=== PATIENT | male | born 1975 | race Caucasian/White ===

== ENCOUNTER → 2019-01-04 | Outpatient (CLI) | payer OTHER ==
[~2019-01-04] MED LIST: AUGMENTIN 875875 MG PO; DARVOCET N 1001 TAB PO; DAYPRO600 M1 PO; LOMOTIL 0.025 M1 TAB PO; VITAMIN E100 I1 PO; Zofran4 MG PO
== END ==
LOC: RAD 09:56
DX: R06.02 Shortness of breath (principal)

== ENCOUNTER 2021-10-06 11:19 | Inpatient (IN) | payer OTHER ==
[~2021-10-06] VITALS: Ht 193 cm; Wt 81.7 kg
[2021-10-06 12:13] VITALS: BP 130/83
[2021-10-06 12:32] LABS: BASO # 0.1 10*3/uL (0.0-0.1); EOS # 0.2 10*3/uL (0.0-0.4); EOS % 2.2 % (1.0-4.0); HEMATOCRIT 42.6 % (42.0-52.0); LYMPH # 2.1 10*3/uL (1.3-4.4); LYMPH % 29.3 % (27.0-41.0); MEAN CELL VOLUME 96.2 fl (80.0-94.0); MEAN CORPUSCULAR HGB 32.7 pg (27.0-31.0); MEAN PLATELET VOLUME 9.8 fl (9.6-12.3); MONO # 0.5 10*3/uL (0.1-1.0); NEUT # 4.4 10*3/uL (2.3-7.9); NEUT % 60.2 % (47.0-73.0); PLATELET COUNT AUTOMATED 246 10*3/uL (130-400); RED BLOOD COUNT 4.43 10*6/uL (4.50-5.90); RED CELL DISTRI WIDTH 12.8 % (0-14.5); WHITE BLOOD COUNT 7.3 10*3/uL (4.8-10.8)
[2021-10-06 12:55] LABS: ALKALINE PHOSPHATASE 59 U/L (45-117); BUN 10 mg/dl (7-24); CHLORIDE 107 mmol/L (98-107); CREATININE 0.88 mg/dL (0.70-1.30); POTASSIUM 3.6 mmol/L (3.5-5.1); SGOT/AST 14 IU/L (3-35); SGPT/ALT 26 U/L (12-78); SODIUM 138 mmol/L (136-145); TOTAL PROTEIN 7.4 gm/dL (6.4-8.2)
[2021-10-06 13:08] LABS: ETHYL ALCOHOL < 3.0 mg/dl (<3)
[2021-10-06 13:17] LABS: BILIRUBIN Negative (Negative); BLOOD Negative (Negative); CLARITY Clear (Clear); COLOR Yellow (Yellow); GLUCOSE Negative (Negative); KETONE 2+ (Negative); LEUKO ESTERASE Negative (Negative); NITRITE Negative (Negative); PH 6.5 (4.5-8.0)
[2021-10-06 13:26] LABS: URINE AMPHETAMINES < 1000 (1000ng/ml); URINE BARBITURATES < 200 (200ng/ml); URINE BENZODIAZEPINES < 200 (200ng/ml); URINE CANNABINOIDS (THC) < 50 (50ng/ml); URINE COCAINE < 300 (300ng/ml); URINE METHADONE < 300 (300ng/ml); URINE OPIATES < 300 (300ng/ml)
[2021-10-06 13:27] LABS: URINE PHENCYCLIDINE < 25 (25ng/ml)
[2021-10-06 13:35] LABS: EPITHELIAL CELLS 0-2; RBC 0-2 rbc/hpf (0-2); WBC 0-2 wbc/hpf (0-5)
[2021-10-06 15:27] VITALS: BP 115/62
[2021-10-06 15:51] VITALS: BP 122/64
[2021-10-06 20:00] VITALS: BP 109/72
[2021-10-07] VITALS: BP 110/71
[2021-10-07 04:00] VITALS: BP 110/68
[2021-10-07 08:00] VITALS: BP 124/81
[2021-10-07 12:00] VITALS: BP 119/71
[2021-10-07 16:00] VITALS: BP 113/71
[2021-10-07 20:00] VITALS: BP 103/65
[2021-10-08] VITALS: BP 108/66
[2021-10-08 08:00] VITALS: BP 117/79
[2021-10-08 12:00] VITALS: BP 113/70
[2021-10-08 16:00] VITALS: BP 117/76
[2021-10-08 20:00] VITALS: BP 101/67
[2021-10-09] VITALS: BP 108/61
[2021-10-09 08:00] VITALS: BP 116/65
== END 2021-10-09 10:20 | disposition home or self-care (01) | DRG 897 ==
LOC: 5E 11:19
PROVIDERS: Registered Nurse; ADMIT Internal Medicine; ATTEND Internal Medicine
DX: F10.239 Alcohol dependence with withdrawal, unspecified (principal); D75.89 Other specified diseases of blood and blood-forming organs; F41.9 Anxiety disorder, unspecified; F17.210 Nicotine dependence, cigarettes, uncomplicated; Z80.3 Family history of malignant neoplasm of breast

== ENCOUNTER 2021-10-29 06:53 | Emergency (ER) | payer OTHER ==
[~2021-10-29] VITALS: Wt 82.1 kg
[2021-10-29] MEDS ORDERED: FLONASE ALLERG9.9 ML NAS (07:19)
[2021-10-29] MEDS ORDERED: MUCINEX DM 30/61 TAB PO (07:25)
== END 2021-10-29 07:21 | disposition home or self-care (01) ==
LOC: ED 06:53
DX: B34.9 Viral infection, unspecified (principal); Z20.822 Contact with and (suspected) exposure to COVID-19; F17.210 Nicotine dependence, cigarettes, uncomplicated

== ENCOUNTER 2022-05-03 03:32 | Emergency (ER) | payer OTHER ==
[~2022-05-03 03:32] MED LIST changes: +FLONASE ALLERG9.9 ML NAS; +MUCINEX DM 30/61 TAB PO
[2022-05-03 04:18] LABS: BASO # 0.1 10*3/uL (0.0-0.1); BASO % 0.9 % (0.0-1.0); EOS # 0.6 10*3/uL (0.0-0.4); EOS % 6.9 % (1.0-4.0); HEMATOCRIT 37.4 % (42.0-52.0); LYMPH # 2.3 10*3/uL (1.3-4.4); LYMPH % 28.5 % (27.0-41.0); MEAN CELL VOLUME 95.9 fl (80.0-94.0); MEAN CORPUSCULAR HGB 32.3 pg (27.0-31.0); MEAN CORPUSCULAR HGB CONC 33.7 g/dl (33.0-37.0); MEAN PLATELET VOLUME 10.4 fl (9.6-12.3); MONO # 0.6 10*3/uL (0.1-1.0); MONO % 7.9 % (3.0-9.0); NEUT # 4.4 10*3/uL (2.3-7.9); PLATELET COUNT AUTOMATED 220 10*3/uL (130-400); RED CELL DISTRI WIDTH 12.8 % (0-14.5)
[2022-05-03 04:33] LABS: ALKALINE PHOSPHATASE 60 U/L (45-117); BUN 23 mg/dl (7-24); CHLORIDE 112 mmol/L (98-107); CREATININE 0.89 mg/dL (0.70-1.30); POTASSIUM 4.3 mmol/L (3.5-5.1); SGOT/AST 21 IU/L (3-35); SGPT/ALT 26 U/L (12-78); SODIUM 140 mmol/L (136-145); TOTAL PROTEIN 6.5 gm/dL (6.4-8.2); URIC ACID 7.3 mg/dL (3.5-7.2)
[2022-05-03] MEDS ORDERED: INDOMETHACIN25 M1 PO (04:52)
[2022-05-03] MEDS ORDERED: PREDNISONE20 M1 PO (04:52)
[2022-05-03] MEDS ORDERED: LIDODERM1 EACH T (04:52)
== END 2022-05-03 05:20 | disposition home or self-care (01) ==
LOC: ED 03:32
PROVIDERS: Family Medicine
DX: M10.9 Gout, unspecified (principal); F17.210 Nicotine dependence, cigarettes, uncomplicated

== ENCOUNTER 2024-01-23 12:14 | Emergency (ER) | payer OTHER ==
[~2024-01-23] VITALS: Ht 193 cm; Wt 101.6 kg
[~2024-01-23 12:14] MED LIST changes: +INDOMETHACIN25 M1 PO; +LIDODERM1 EACH T; +PREDNISONE20 M1 PO
[2024-01-23] MEDS ORDERED: Tdap Vaccine 0.5 ML SYR (Adult Vaccine) IM ONE (13:00)
[2024-01-23] MEDS ORDERED: CEPHALEXIN500 M1 PO (13:14)
== END 2024-01-23 13:24 | disposition home or self-care (01) ==
LOC: ED 12:14
DX: S81.812A Laceration without foreign body, left lower leg, initial encounter (principal); F10.10 Alcohol abuse, uncomplicated; F17.210 Nicotine dependence, cigarettes, uncomplicated; Z98.890 Other specified postprocedural states; W26.8XXA Contact with other sharp object(s), not elsewhere classified, initial encounter; Y93.89 Activity, other specified; Y92.89 Other specified places as the place of occurrence of the external cause; Y99.0 Civilian activity done for income or pay

== ENCOUNTER 2024-04-30 09:19 | Emergency (ER) | payer OTHER ==
[~2024-04-30] VITALS: Ht 193 cm; Wt 100.7 kg
[~2024-04-30 09:19] MED LIST changes: +CEPHALEXIN500 M1 PO
[2024-04-30 10:20] LABS: BASO # 0.1 10*3/uL (0.0-0.1); EOS # 0.4 10*3/uL (0.0-0.4); EOS % 4.7 % (1.0-4.0); HEMATOCRIT 43.9 % (42.0-52.0); LYMPH # 2.1 10*3/uL (1.3-4.4); LYMPH % 27.7 % (27.0-41.0); MEAN CELL VOLUME 93.4 fl (80.0-94.0); MEAN CORPUSCULAR HGB 30.6 pg (27.0-31.0); MEAN CORPUSCULAR HGB CONC 32.8 g/dl (33.0-37.0); MEAN PLATELET VOLUME 10.2 fl (9.6-12.3); MONO # 0.6 10*3/uL (0.1-1.0); MONO % 7.3 % (3.0-9.0); NEUT # 4.5 10*3/uL (2.3-7.9); NEUT % 58.4 % (47.0-73.0); PLATELET COUNT AUTOMATED 280 10*3/uL (130-400); WHITE BLOOD COUNT 7.7 10*3/uL (4.8-10.8)
[2024-04-30 10:33] LABS: ACT PARTIAL THROMBO TIME 28.9 SECONDS (20.0-32.1)
[2024-04-30 10:38] LABS: BUN 11 mg/dl (9-23); CHLORIDE 107 mmol/L (98-107); POTASSIUM 4.4 mmol/L (3.4-5.1)
== END 2024-04-30 12:55 | disposition home or self-care (01) ==
LOC: ED 09:19
PROVIDERS: Internal Medicine
DX: R53.1 Weakness (principal); Z20.822 Contact with and (suspected) exposure to COVID-19; R10.2 Pelvic and perineal pain; F10.10 Alcohol abuse, uncomplicated; F17.210 Nicotine dependence, cigarettes, uncomplicated; Z98.890 Other specified postprocedural states